=== PATIENT | male | born 1970 | race Native Hawaiian/Other Pacific Islander ===

== ENCOUNTER 2019-01-29 07:47 | Day surgery (SDC) | payer OTHER ==
[2019-01-29 08:35] LABS: PLATELET COUNT 300 K/uL (142-355)
[2019-01-29 08:47] LABS: POTASSIUM 3.4 mmol/L (3.6-5.2)
== END 2019-01-29 10:42 | disposition home or self-care (01) ==
LOC: OR 07:47
PROVIDERS: Student in an Organized Health Care Education/Training Program
PROC: 0DBN8ZZ Excision of Sigmoid Colon, Via Natural or Artificial Opening Endoscopic (ICD-10-PCS; principal; 2019-01-29)
DX: D12.5 Benign neoplasm of sigmoid colon (principal); R19.4 Change in bowel habit; Z12.11 Encounter for screening for malignant neoplasm of colon
CPT/HCPCS: 80053; 85027; J2001; J2250; J2405; J2704; J3490